=== PATIENT | male | born 1950 | race Caucasian/White ===

== ENCOUNTER 2023-09-17 17:27 | Emergency (ER) | payer OTHER ==
[2023-09-17] MEDS ORDERED: IPRATROPIUM BROM 0.5MG/2.5ML ONE (17:48)
[2023-09-17] MEDS ORDERED: ALBUTEROL 2.5 MG/3 ML NEB SOL ONE (17:48)
[2023-09-17] MEDS ORDERED: METHYLPREDNISOLONE 125 MG INJ ONE (17:48)
[2023-09-17] MEDS ORDERED: ACETAMINOPHEN 500 MG TAB ONE (17:48)
--- NOTE | 2023-09-17 18:12 | RAD REPORT ---
EXAM DESCRIPTION: RAD - Chest Single View - 09/17/2023 6:05 pm CLINICAL HISTORY: COUGH Chest pain. COMPARISON: <Comparisons> FINDINGS: Portable technique limits examination quality. Mild pulmonary edema suspected. The heart is mildly prominent with a tortuous thoracic aorta. No disp laced fractures.
[2023-09-17 18:15] LABS: SARS-CoV-2 Antigen CONTROL BLUE LINE VIS/BG OK; SARS-CoV-2 Antigen Rapid Res Negative (Negative)
[2023-09-17 18:17] LABS: Absolute Lymphocytes (CBC) 0.7 K/uL (0.7-4.9); Absolute Monocytes 1.3 K/uL (0.1-1.3); Absolute Neutrophil 11.6 K/uL (1.8-8.0); Basophils % 0.1 % (0-1.3); Eosinophils % 0.1 % (0-4.4); Hematocrit 40.6 % (39.6-49.0); Hemoglobin 13.5 g/dL (13.6-17.9); Lymphocytes % 4.9 % (15.3-44.8); MCH 30.2 pg (27.0-35.0); MCHC 33.2 g/dL (32.0-36.0); MCV 91.2 fL (80-100); MPV 8.6 fL (7.6-11.3); Monocytes % 9.6 % (3.3-12.3); Neutrophils % 85.3 % (41.7-73.7); Platelets 246 thou/uL (152-406); RBC Red Blood Cell Count 4.46 M/uL (4.33-5.43); Red Cell Distribution Width 13.5 % (12.1-15.2)
[2023-09-17 18:21] LABS: PT Prothrombin Time 15.4 SECONDS (9.4-12.5); PTT, Activated Partial Thromb 30.1 SECONDS (24.3-36.9); Protime INR 1.41
[2023-09-17 18:31] LABS: Albumin 3.6 g/dL (3.4-5.0); Albumin/Globulin Ratio 0.8 (1.1-1.8); Anion Gap 8.6 mEq/L (5.0-15.0); Globulin 4.7 g/dL (2.3-3.5); Potassium 3.6 mEq/L (3.5-5.1); Protein, Total 8.3 g/dL (6.4-8.2)
--- NOTE | 2023-09-17 20:21 | RAD REPORT ---
EXAM DESCRIPTION: CT - Chest For Pe Angio - 09/17/2023 8:02 pm CLINICAL HISTORY: Chest pain. Cough;SOB COMPARISON: <Comparisons> TECHNIQUE: CT angiogram of the pulmonary arteries was performed with MIP. All CT scans are performed using dose optimization technique as appropriate and may include automated exposure control or mA/KV adjustment according to patient size. FINDINGS: No evidence of pulmonary thromboembolism. There is aneurysm of the ascending aorta measuring up to 7 cm. Motion degradation limits assessment of the lung burks. No gross infiltrate. No significant pericardial or pleural fluid. No concerning bony finding. IMPRESSION: No evidence of pulmonary thromboembolism. 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 This is likely clinically significant at would warrant cardiology/cardiothoracic surgery follow-up in a nonemergent setting.
[2023-09-17 21:21] LABS: Troponin High Sensitivity 10.6 pg/mL (<58.9)
--- NOTE | 2023-09-17 21:54 | ER ---
Nurse's Notes [facility] Name: Alok Liu Age: 72 yrs Sex: Male : 1950 Arrival Date: 09/17/2023 Time: 17:27 Bed 19 Private MD: Diagnosis: Shortness of breath Presentation: 09/16 17:29 Chief complaint: Patient states: SHORTNESS OF BREATH WITH CONGESTION AND SORE THROAT X db 2 WEEKS WORSE LAST 4 DAYS. Coronavirus screen: Client denies travel out of the [place] in the last 14 days. At this time, the client does not indicate any symptoms associated with coronavirus-19. Ebola Screen: Patient negative for fever greater than or equal to 101.5 degrees Fahrenheit, and additional compatible Ebola Virus Disease symptoms Patient denies exposure to infectious person. Patient denies travel to an Ebola-affected area in the 21 days before illness onset. No symptoms or risks identified at this time. Initial Sepsis Screen: Does the patient meet any 2 criteria? HR > 90 bpm. No. Patient's initial sepsis screen is negative. Does the patient have a suspected source of infection? No. Patient's initial sepsis screen is negative. Risk Assessment: Do you want to hurt yourself or someone else? Patient reports no desire to harm self or others. Onset of symptoms was September 14, 2023. 17:29 Method Of Arrival: Ambulatory db 17:29 Acuity: JOHN 2 db Triage Assessment: 17:32 General: Appears in no apparent distress. comfortable, Behavior is cooperative, db restless. Pain: Complains of pain in chest. Neuro: Level of Consciousness is awake, alert, obeys commands, Oriented to person, place, time, situation, Speech is normal. Cardiovascular: Reports shortness of breath. Respiratory: Reports shortness of breath at rest cough that is productive, pain with cough Onset: The symptoms/episode began/occurred gradually, the patient has moderate shortness of breath. Historical: - Allergies: 17:33 No Known Allergies; db - PMHx: 17:33 None; db - Immunization history:: Adult Immunizations unknown. - Infectious Disease History:: Denies. - Social history:: Smoking status: Patient denies any tobacco usage or history of. Screenin:45 [facility] ED Fall Risk Assessment (Adult) History of falling in the last 3 months, mb9 including since admission No falls in past 3 months (0 pts) Confusion or Disorientation No (0 pts) Intoxicated or Sedated No (0 pts) Impaired Gait No (0 pts) Mobility Assist Device Used No (0 pt) Altered Elimination No (0 pt) Score/Fall Risk Level 0 - 2 = Low Risk Oriented to surroundings, Maintained a safe environment, Educated pt \T\ family on fall prevention, incl call for assistance when getting out of bed. Abuse screen: Denies threats or abuse. Nutritional screening: No deficits noted. Tuberculosis screening: No symptoms or risk factors identified. Assessment: 17:53 General: Appears uncomfortable, Behavior is cooperative. Pain: Denies pain. Neuro: mb9 Graham Agitation-Sedation Scale (RASS): 0 - Alert and Calm Level of Consciousness is awake, alert, obeys commands, Oriented to person, place, time, situation, Appropriate for age. Cardiovascular: Heart tones S1 S2 present Patient's skin is warm and dry. Rhythm is sinus tachycardia. Respiratory: Reports shortness of breath cough that is Airway is patent Respiratory effort is even, unlabored, Respiratory pattern is tachypnea Breath sounds with wheezes bilaterally. GI: Abdomen is round non-distended, Bowel sounds present X 4 quads. Abd is soft and non tender X 4 quads. : No signs and/or symptoms were reported regarding the genitourinary system. EENT: No signs and/or symptoms were reported regarding the EENT system. Derm: Skin is pink, warm \T\ dry. Musculoskeletal: Range of motion: intact in all extremities. 18:58 Reassessment: No changes from previously documented assessment. Patient and/or family mb9 updated on plan of care and expected duration. Pain level reassessed. Patient is alert, oriented x 3, equal unlabored respirations, skin warm/dry/pink. Vital Signs: 17:29 BP 173 / 102; Pulse 109; Resp 28; Temp 100.1(O); Pulse Ox 90% on R/A; Weight 102.06 kg; db Height 6 ft. 1 in. ; 17:44 BP 158 / 93; Pulse 99; Resp 18; Pulse Ox 96% on 2 lpm NC; mb9 18:58 BP 129 / 81; Pulse 88; Resp 18; Pulse Ox 95% on 2 lpm NC; mb9 21:00 BP 110 / 93; Pulse 91; Resp 18; Pulse Ox 99% 2 lpm ; cp4 22:00 BP 138 / 112; Pulse 65; Resp 18; Pulse Ox 97% 2 lpm ; cp4 22:40 BP 130 / 93; Pulse 57; Resp 18; Pulse Ox 99% ; cp4 23:45 BP 142 / 96; Pulse 57; Resp 20; Temp 99.4; Pulse Ox 100% ; cp4 17:29 Body Mass Index 29.69 (102.06 kg, 185.42 cm) db ED Course: 17:29 Patient arrived in ED. db 17:32 Triage completed. db 17:32 Arm band placed on Patient placed in an exam room. db 17:37 Lonny Gallegos PA is PHCP. cp 17:37 Lonny Bustos MD is Attending Physician. cp 17:44 Niru Ruiz RN is Primary Nurse. mb9 17:45 Placed in gown. Bed in low position. Call light in reach. Side rails up X 1. Provided mb9 Education on: press call light if needing anything. Client placed on continuous cardiac and pulse oximetry monitoring. NIBP monitoring applied. panel monitor on. Door closed. Noise minimized. Warm blanket given. 17:53 SARS RAPID Sent. mb9 17:53 Influenza Screen (a \T\ B) Sent. mb9 17:53 EKG done, by ED staff, reviewed by Lonny MCKOY COVID swab sent to lab. Flu and/or RSV mb9 swab sent to lab. 17:54 No provider procedures requiring assistance completed. mb9 18:06 Chest Single View XRAY In Process Unspecified. EDMS 19:06 Report given to DONALD Beard. mb9 20:04 CT Chest For PE Angio In Process Unspecified. EDMS 23:47 Patient transferred, IV remains in place. cp4 Administered Medications: 17:53 Drug: DuoNeb Nebulize (2.5 mg - 0.5 mg) 3 ml Nebulizer once Route: Nebulizer; mb9 18:59 Follow up: Response: No adverse reaction mb9 23:01 Follow up: Response: No adverse reaction cp4 17:53 Drug: Acetaminophen PO 1000 mg PO once Route: PO; mb9 23:48 Follow up: Response: No adverse reaction cp4 18:08 Drug: MethylPrednisoLONE IVP 125 mg IVP once Route: IVP; Site: right antecubital; mb9 18:59 Follow up: Response: No adverse reaction mb9 23:01 Follow up: Response: No adverse reaction cp4 22:03 Not Given (Physician Discretion): [id number] mg IV at calculated rate once cp 22:07 Drug: Metoprolol PO 25 mg PO once Route: PO; cp4 22:49 Follow up: Response: No adverse reaction cp4 22:08 Drug: AZITHromycin PO 500 mg PO once Route: PO; cp4 22:49 Follow up: Response: No adverse reaction cp4 Medication: 17:45 VIS not applicable for this client. mb9 Outcome: 21:54 ER care complete, transfer ordered by MD. cp 23:47 Transferred by ground EMS to [facility], Transfer form completed. cp4 X-rays sent w/ patient. 23:47 Condition: stable 23:47 Instructed on the need for transfer, 23:54 Patient left the ED. cp4 Signatures: Dispatcher [employer] EDMS Lonny Gallegos PA PA cp Benton, Danielle RN Niru Nuñez RN Kisha Worrell cp4
--- NOTE | 2023-09-17 21:54 | EDPHYS ---
Physician Documentation [facility] Name: Alok Liu Age: 72 yrs Sex: Male : 1950 Arrival Date: 09/17/2023 Time: 17:27 Bed 19 Private MD: ED Physician Lonny Bustos HPI: 09/16 17:45 This 72 yrs old Male presents to ER via Ambulatory with complaints of Shortness Of cp Breath. 17:45 The patient has shortness of breath with light activity. Onset: The symptoms/episode cp began/occurred 2 week(s) ago, and became worse 4 day(s) ago. 17:45 Duration: The symptoms are continuous, and are steadily getting worse. cp 17:45 Associated signs and symptoms: Pertinent positives: productive cough, fever, Pertinent cp negatives: chest pain, vomiting. Severity of symptoms: in the emergency department the symptoms are unchanged despite home interventions. Historical: - Allergies: 17:33 No Known Allergies; db - PMHx: 17:33 None; db - Immunization history:: Adult Immunizations unknown. - Infectious Disease History:: Denies. - Social history:: Smoking status: Patient denies any tobacco usage or history of. ROS: 17:50 Constitutional: Positive for fever, cp 17:50 Cardiovascular: Negative for chest pain, edema, palpitations, cp 17:50 Respiratory: Positive for cough, "sounds productive", shortness of breath, Exam: 17:50 ECG was reviewed by the Attending Physician. cp 17:55 Constitutional: The patient appears in no acute distress, alert, awake, cp non-diaphoretic, non-toxic, well developed, well nourished, uncomfortable, 17:55 Head/Face: Normocephalic, atraumatic. cp 17:55 Eyes: Periorbital structures: appear normal, Conjunctiva: normal, no exudate, no injection, Sclera: no appreciated abnormality, Lids and lashes: appear normal, bilaterally, 17:55 ENT: External ear(s): are unremarkable, Nose: is normal, Mouth: Lips: moist, Oral mucosa: pink and intact, moist, Posterior pharynx: Airway: no evidence of obstruction, patent, erythema, is not appreciated, exudate, is not appreciated, 17:55 Neck: ROM/movement: is normal, is supple, without pain, no range of motions limitations, 17:55 Chest/axilla: Inspection: normal, 17:55 Cardiovascular: Rate: tachycardic, Rhythm: regular, Edema: is not appreciated, JVD: is not appreciated, 17:55 Respiratory: the patient does not display signs of respiratory distress, Respirations: labored breathing, that is moderate, Breath sounds: decreased breath sounds, that are moderate, throughout, stridor, is not appreciated, wheezing: that is mild, is heard diffusely, 17:55 Abdomen/GI: Inspection: abdomen appears normal, Palpation: abdomen is soft and non-tender, in all quadrants, 17:55 Back: pain, is absent, ROM is normal, 17:55 Neuro: Orientation: to person, place \\T\\ time. Mentation: is normal, Motor: moves all fours, strength is normal, Sensation: is normal, Vital Signs: 17:29 BP 173 / 102; Pulse 109; Resp 28; Temp 100.1(O); Pulse Ox 90% on R/A; Weight 102.06 kg; db Height 6 ft. 1 in. ; 17:44 BP 158 / 93; Pulse 99; Resp 18; Pulse Ox 96% on 2 lpm NC; mb9 18:58 BP 129 / 81; Pulse 88; Resp 18; Pulse Ox 95% on 2 lpm NC; mb9 21:00 BP 110 / 93; Pulse 91; Resp 18; Pulse Ox 99% 2 lpm ; cp4 22:00 BP 138 / 112; Pulse 65; Resp 18; Pulse Ox 97% 2 lpm ; cp4 22:40 BP 130 / 93; Pulse 57; Resp 18; Pulse Ox 99% ; cp4 23:45 BP 142 / 96; Pulse 57; Resp 20; Temp 99.4; Pulse Ox 100% ; cp4 17:29 Body Mass Index 29.69 (102.06 kg, 185.42 cm) db MDM: 17:37 Patient medically screened. cp 22:00 Data reviewed: vital signs, nurses notes, lab test result(s), EKG, radiologic studies, cp CT scan, plain films, and as a result, I will transfer patient. 22:00 Antibiotic administration: oral Zithromax given. I considered the following discharge cp prescriptions or medication management in the emergency department Medications were administered in the Emergency Department. See MAR. Independent interpretation of the following test(s) in the Emergency Department EKG: See my EKG interpretation above. Counseling: I had a detailed discussion with the patient and/or guardian regarding the historical points, exam findings, and any diagnostic results supporting the discharge/admit diagnosis, the presence of at least one elevated blood pressure reading (>120/80) during this emergency department visit, lab results, radiology results, the need to transfer to another facility, for higher level of care, [facility] does not immediately have the required specialist. 07 17:42 Order name: Blood Culture Adult (2) cp 09/16 17:42 Order name: CBC with Diff; Complete Time: 19:28 cp 09/16 20:45 Interpretation: Normal except: WBC 13.50; HGB 13.5; IAN% 85.3; LYM% 4.9; NEUT A 11.6. cp / 17:42 Order name: CMP; Complete Time: 19:28 cp 09/16 20:46 Interpretation: Normal except: NA 134; GLUC 159; BUN 19; GFR 70; TP 8.3; GLOB 4.7; A/G cp 0.8. 09/16 17:42 Order name: Lactate w/ 2H reflex if indic.; Complete Time: 19:28 cp 09/16 17:42 Order name: Protime (+inr); Complete Time: 19:28 cp 09/16 20:46 Interpretation: Reviewed. cp 09/16 17:42 Order name: Ptt, Activated; Complete Time: 19:28 cp 09/16 17:42 Order name: Influenza Screen (a \\T\\ B); Complete Time: 19:28 cp 09/16 17:42 Order name: SARS RAPID; Complete Time: 19:28 cp 09/16 20:54 Order name: BNP; Complete Time: 21:37 cp / 20:55 Order name: Troponin High Sensitivity; Complete Time: 21:37 cp / 20:55 Order name: LAB Add On cp 09/16 17:42 Order name: Chest Single View XRAY; Complete Time: 19:28 cp / 19:29 Order name: CT Chest For PE Angio; Complete Time: 20:42 cp 09/16 17:42 Order name: Accucheck; Complete Time: 17:53 cp 09/16 17:42 Order name: Cardiac monitoring; Complete Time: 17:53 cp 09/16 17:42 Order name: EKG - Nurse/Tech; Complete Time: 17:53 cp 09/16 17:42 Order name: IV Saline Lock - Large Bore; Complete Time: 17:53 cp 09/16 17:42 Order name: Labs collected and sent; Complete Time: 17:53 cp 09/16 17:42 Order name: O2 Per Protocol; Complete Time: 17:53 cp 09/16 17:42 Order name: O2 Sat Monitoring; Complete Time: 17:53 cp 09/16 17:42 Order name: Vital Signs; Complete Time: 17:53 cp EC:50 Rate is 100 beats/min. Rhythm is regular. VT interval is normal. QRS interval is cp normal. QT interval is normal. Interpreted by me. Reviewed by me. Administered Medications: 17:53 Drug: DuoNeb Nebulize (2.5 mg - 0.5 mg) 3 ml Nebulizer once Route: Nebulizer; mb9 18:59 Follow up: Response: No adverse reaction mb9 23:01 Follow up: Response: No adverse reaction cp4 17:53 Drug: Acetaminophen PO 1000 mg PO once Route: PO; mb9 23:48 Follow up: Response: No adverse reaction cp4 18:08 Drug: MethylPrednisoLONE IVP 125 mg IVP once Route: IVP; Site: right antecubital; mb9 18:59 Follow up: Response: No adverse reaction mb9 23:01 Follow up: Response: No adverse reaction cp4 22:03 Not Given (Physician Discretion): [id number] mg IV at calculated rate once cp 22:07 Drug: Metoprolol PO 25 mg PO once Route: PO; cp4 22:49 Follow up: Response: No adverse reaction cp4 22:08 Drug: AZITHromycin PO 500 mg PO once Route: PO; cp4 22:49 Follow up: Response: No adverse reaction cp4 Disposition Summary: 09/17/23 21:54 Transfer Ordered Notes: Transfer Location: [facility] cp Reason: Higher level of care cp Condition: Stable cp Problem: new cp Symptoms: have improved cp Accepting Physician: Doctor(09/17/23 23:54) cp4 Diagnosis - Shortness of breath cp Forms: - Medication Reconciliation Form cp - SBAR form cp Addendum: 09/20/2023 07:45 Co-signature as Attending Physician, Lonny Bustos MD I agree with the assessment and c quinones plan of care. Signatures: Dispatcher [employer] EDMS Lonny Bustos MD MD cha Page, Corey, PA PA cp Benton, Danielle, RN RN db Joseph, Niru Jaramillo RN RN mb9 Kisha Felix cp4 Corrections: (The following items were deleted from the chart) 09/16 17:43 17:43 BLOOD CULTURE*+BA.LAB.BRZ ordered. EDMS EDMS 17:43 17:43 CBC+H.LAB.BRZ ordered. EDMS EDMS 17:43 17:43 COMPREHENSIVE METABOLIC PANEL+C.LAB.BRZ ordered. EDMS EDMS 17:43 17:43 LACTATE+C.LAB.BRZ ordered. EDMS EDMS 17:43 17:43 PROTIME (+INR)+COAG.LAB.BRZ ordered. EDMS EDMS 17:43 17:43 PTT, ACTIVATED+COAG.LAB.BRZ ordered. EDMS EDMS 17:43 17:43 Urinalysis+U.LAB.BRZ ordered. EDMS EDMS 17:43 17:43 Influenza Screen (A \\T\\ B)+BA.LAB.BRZ ordered. EDMS EDMS 17:43 17:43 SARS-COV-2 Antigen Rapid+I.LAB.BRZ ordered. EDMS EDMS 17:43 17:43 Chest Single View+RAD.RAD.BRZ ordered. EDMS EDMS 20:54 20:54 PROBNP+C.LAB.BRZ ordered. EDMS EDMS 23:54 21:54 Doctor polo cp4
[2023-09-17] MEDS ORDERED: METOPROLOL TAR 25 MG TAB ONE (22:04)
[2023-09-17] MEDS ORDERED: AZITHROMYCIN 250 MG TAB ONE (22:04)
[2023-09-18 01:08] VITALS: BP 142/96; TEMP 99.4; O2SAT 100
--- NOTE | 2023-09-19 11:14 | EKG ---
Test Date: 2023-09-17 Test Time: 17:45:07 Ip Attorney: MOIZ MEASUREMENT RESULTS: Intervals: Rate: 100 SD: 154 QRSD: 98 QT: 354 QTc: 456 [place]: P: 78 SD: 154 QRS: 78 T: 57 INTERPRETIVE STATEMENTS: Sinus rhythm Normal ECG No previous ECG available for comparison Electronically Signed On 09-19-23 11:12:14 CDT by Polo Ash
== END 2023-09-17 23:54 | disposition short-term general hospital (02) ==
LOC: ER 17:27
DX: R06.02 Shortness of breath (principal); R05.9 Cough, unspecified; Z11.52 Encounter for screening for COVID-19
CPT/HCPCS: 93005; 87040 ×2; 85025; 36415; 85610; 83605; 85730; 84484; 80053; 83880; 87804 ×2; 71275; 71045; 94640; 96374; 99285; 87811; Q9967; J7613; J7644; J2919